=== PATIENT | female | born 1995 | race African-American/Black ===

== ENCOUNTER 2024-04-18 10:39 | Outpatient (CLI) | payer OTHER ==
[~2024-04-18] VITALS: Ht 160 cm; Wt 83.6 kg
[2024-04-18] MEDS ORDERED: Ondansetron 4 MG/2 ML VIAL IV ONE (11:00)
[2024-04-18] MEDS ORDERED: LR 1,000 ML IV ONE (11:00)
[2024-04-18 11:32] LABS: BASO # 0.1 K/mm3 (0.0-0.2); BASO % 0.4 % (0.0-2.0); EOS # 0.2 K/mm3 (0.0-0.7); GRAN # 12.4 K/mm3 (1.4-6.5); GRAN % 78.7 % (42.2-75.2); LYMPH # 1.7 K/mm3 (1.2-3.4); LYMPH % 10.7 % (20.0-51.0); MEAN CELL VOLUME 72 fl (80.0-100.0); MEAN CORPUSCULAR HGB CONC 34 g/dl (33.0-37.0); MEAN PLATELET VOLUME 11.3 fl (7.4-10.4); MONO # 1.2 K/mm3 (0.1-0.6); MONO % 7.4 % (1.7-9.3); PLATELET COUNT 249 K/mm3 (130-400); RED BLOOD COUNT 3.79 M/mm3 (4.10-5.30); REDCELL DISTRIBUTION WIDTH-CV 17.4 % (11.5-14.5)
[2024-04-18 11:34] LABS: HEMATOCRIT 27.2 % (37.0-47.0); HEMOGLOBIN 9.1 g/dl (12.5-16.0); MEAN CORPUSCULAR HEMOGLOBIN 24 pg (27-31)
[2024-04-18] MEDS ORDERED: PRENATAL (11:37)
[2024-04-18] MEDS ORDERED: LR 1,000 ML IV PRN (11:45)
[2024-04-18 12:00] VITALS: PULSE 84; TEMP 98.1
[2024-04-18 12:06] LABS: ALBUMIN 2.5 g/dL (3.5-5.0); BILIRUBIN,TOTAL 0.3 mg/dL (0.2-1.2); C-REACTIVE PROTEIN 0.72 mg/dL (0.00-0.50); CALCIUM 9.3 mg/dL (8.4-10.2); CREATININE, serum 0.77 mg/dL (0.57-1.11); TOTAL PROTEIN 6.2 g/dl (6.2-8.1)
[2024-04-18 12:30] VITALS: BP 103/57; PULSE 71
[2024-04-18 12:45] VITALS: BP 96/54; PULSE 77
[2024-04-18 12:45] LABS: URINE APPEARANCE CLEAR (CLEAR/HAZY); URINE BLOOD NEGATIVE (NEGATIVE); URINE COLOR YELLOW (YELLOW); URINE GLUCOSE NEGATIVE (NEGATIVE); URINE KETONE NEGATIVE (NEGATIVE); URINE NITRATE NEGATIVE (NEGATIVE); URINE PROTEIN(semi-quant) NEGATIVE (NEGATIVE)
[2024-04-18] MEDS ORDERED: Terbutaline 1 MG/ML 1 ML AMP SQ ONE (12:45)
[2024-04-18 12:51] LABS: COLLECTION METHOD CLEAN CATCH
[2024-04-18 13:15] VITALS: BP 121/58; PULSE 83
[2024-04-18 13:35] VITALS: PULSE 90
--- NOTE | 2024-04-18 13:40 | NUR ---
CATEGORY 1 EFM TRACING THROUGHOUT VISIT. NO CONTRACTIONS AT THIS TIME. PT FULLY ALERT AND ORIENTED, REPORTS FEELING HUNGRY. ABLE TO TOLERATE PO CRACKERS. LR BAG #2 INFUSED. MATERNAL VITAL SIGNS STABLE. SEE PHYSICIAN ORDERS AND NOTIFICATIONS. DC INSTRUCTIONS INCLUDING WHEN TO RETURN REVIEWED AND UNDERSTOOD. ALL APPROPRIATE PAPERWORK SIGNED. PT DC'D FROM UNIT AT THIS TIME.
== END 2024-04-18 13:40 | disposition home or self-care (01) ==
LOC: LDRO 10:39 → COL.ER 10:39 → LDRO 13:40 → EDSTATUS 13:47
PROVIDERS: Family Medicine
DX: Z34.83 Encounter for supervision of other normal pregnancy, third trimester (principal); Z3A.30 30 weeks gestation of pregnancy
CPT/HCPCS: J2405; J3105; J7120

== ENCOUNTER 2024-06-18 14:04 | Outpatient (CLI) | payer OTHER ==
[~2024-06-18] VITALS: Ht 160 cm; Wt 92.3 kg
[~2024-06-18 14:04] MED LIST: PRENATAL
--- NOTE | 2024-06-18 14:10 | NUR ---
PATIENT AMBULATORY TO UNIT, PATIENT ORIENTED TO LABOR ROOM 3 AND ASSISTED INTO A GOWN. PATIENT COMPLAINS OF POSSIBLE LEKAING OF FLUID AND SOME CONTRACTIONS, GOOD MOVEMENT, NO VAGINAL BLEEDING. EFM ADN TOCO PLACED AND TRACING. SVE BY KELY /-2, POSTERIOR, AMNITRACE NEGATIVE. ASSESSMENTS COMPLETED. PATIENT ENCOURAGED TO DRINK PLENTY OF FLUIDS AND UPDATED ON PLAN OF CARE
[2024-06-18 14:45] VITALS: BP 141/77; PULSE 100; TEMP 97.8
[2024-06-18] MEDS ORDERED: LR 1,000 ML IV PRN (14:45)
[2024-06-18 15:15] VITALS: BP 125/68; PULSE 88
[2024-06-18 15:40] VITALS: BP 136/78; PULSE 78
== END 2024-06-18 15:50 | disposition home or self-care (01) ==
LOC: LDRO 14:04
DX: O47.1 False labor at or after 37 completed weeks of gestation (principal); Z3A.39 39 weeks gestation of pregnancy
CPT/HCPCS: J7120

== ENCOUNTER 2024-06-21 14:25 | Inpatient (IN) | payer OTHER ==
[~2024-06-21] VITALS: Ht 160 cm; Wt 95.0 kg
[2024-06-21] VITALS (26 sets, daily range): BP systolic 103–151; BP diastolic 57–90; PULSE 68–93; TEMP 97.4–97.6
--- NOTE | 2024-06-21 14:30 | NUR ---
1430PT TO UNIT VIA WHEELCHAIR FOR LABOR CHECK. PT CHANGED INTO GOWN. PT IN BED. 1435THIS RN AT BEDSIDE TO PLACE TOCO AND EFM. EFM TRACING CAT I. PT VITAL SIGNS STABLE. PT STATES HER CTX ARE 3-4 MIN APART, LASTING 35-40 SECONDS. POSITIVE MOVMENT. PT DENIES LOF AND REPORTS VAGINAL BLEEDING AFTER HER CERVICAL CHECK THIS AFTERNOON. 1440SVE PER THIS RN. 2-3/60/-3. CERVIX POSTERIOR. PT TOLERATED WELL. 1520PT STATES CTX ARE GETTING STRONGER AND SHE IS SUPER UNCOMFORTABLE. 1540SVE PER THIS RN. CERVIX UNCHANGED 2-3/60/-3. PT REQUESTS TO STAY AND BE MONITORED. PT STATES SHE IS EXHAUSTED AND VERY UNCOMFORTABLE. PT STATES SHE IS WORRIED IF SHE LEAVES AND GOES INTO LABOR, SHE LIVES 30 MIN[address] AWAY. 1557DR IRENE NOTIFIED. ADMIT ORDER GIVEN.
[2024-06-21] MEDS ORDERED: LR 1,000 ML IV PRN (15:00)
[2024-06-21] MEDS ORDERED: LR 1,000 ML IV SCH (16:15)
--- NOTE | 2024-06-21 16:25 | NUR ---
THIS RN ALONG WITH BERONICA RN, AND DESTIN RN AT BEDSIDE TO ATTEMPT TO START IV. PT STATES SHE FEELS LIKE SHE NEED TO POOP. SVE PER DESTIN ALFORD. /-2.
--- NOTE | 2024-06-21 16:40 | NUR ---
1640IV STARTED PER BERONICA ALFORD. FIRST BAG OF IVF HUNG. LR BOLUS STARTED. 1642PT REQUESTS EPIDURAL. 1646TODD LEGAL SUPPORT ANALYST NOTIFIED OF PT REQUEST FOR EPIDURAL. 1705TODD LEGAL SUPPORT ANALYST ON UNIT. PT UP TO SITTING ON UNIT. PULSE OX PLACED. VITAL SIGNS STABLE. 1721TEST DOSE ADMINISTERED AT THIS TIME PER PEREZ COSTELLO. PT TOLERATED WELL. 1730PT RETURNED TO BED. PT POSITIONED WEDGE RIGHT. PT STATES SHE IS HAVING A LOT OF RECTAL PRESSURE. 1732DERECK RN AT BEDSIDE FOR SVE. /-2. PT REPOSITINOED TO WEDGE RIGHT WITH A PEANUT BALL. 1750PT STATES SHE IS HAVING TONS OF RECTAL PRESSURE. 1752SVE PER THIS RN. /-1. DENSON PLACED AT THIS TIME. PT TOLERATED WELL. EFM TRACING CAT I.
[2024-06-21 17:04] LABS: BASO % 0.3 % (0.0-2.0); EOS % 0.3 % (0.0-4.0); GRAN # 10.7 K/mm3 (1.4-6.5); GRAN % 79.3 % (42.2-75.2); LYMPH # 1.8 K/mm3 (1.2-3.4); LYMPH % 13.3 % (20.0-51.0); MEAN CELL VOLUME 68 fl (80.0-100.0); MEAN CORPUSCULAR HGB CONC 32 g/dl (33.0-37.0); MONO # 0.9 K/mm3 (0.1-0.6); MONO % 6.3 % (1.7-9.3); PLATELET COUNT 243 K/mm3 (130-400); RED BLOOD COUNT 4.18 M/mm3 (4.10-5.30); REDCELL DISTRIBUTION WIDTH-CV 23.3 % (11.5-14.5)
[2024-06-21] MEDS ORDERED: ROPivacaine PF 0.2% 200 ML IV ONE (17:07)
[2024-06-21 17:16] LABS: HEMATOCRIT 28.4 % (37.0-47.0); HEMOGLOBIN 9.2 g/dl (12.5-16.0); MEAN CORPUSCULAR HEMOGLOBIN 22 pg (27-31)
[2024-06-21] MEDS ORDERED: Ondansetron 4 MG/2 ML VIAL IV PRN (18:00)
[2024-06-21] MEDS ORDERED: diphenhydrAMINE 25 MG CAP PO PRN (18:00)
[2024-06-21] MEDS ORDERED: Naloxone 0.4 MG/ML VIAL IV PRN (18:00)
[2024-06-21] MEDS ORDERED: ePHEDrine 50 MG/10 ML VIAL IV PRN (18:00)
[2024-06-21] MEDS ORDERED: diphenhydrAMINE 50 MG/ML 1 ML VIAL IV PRN (18:00)
[2024-06-21] MEDS ORDERED: LR & Oxytocin 500 ML IV SCH (18:45)
--- NOTE | 2024-06-21 18:45 | NUR ---
1845-PT PLAED IN [facility]. BABY WITH VARIABLE DECEL WITH CTX TO 60-70. PT THEN PLACED IN RT TILT WITH IMPROVEMENT IN FHR.
--- NOTE | 2024-06-21 19:05 | NUR ---
PT NOTED TO HAVE FHR DECEL TO 50-60 WITH RETURN TO BL IN 90 SEC, SVE DURING DECEL. NO CHANGE FROM PREVIOUS CHECK. 191-PT NOW IN L LATERAL WITH RT LEG IN STIRRUP
--- NOTE | 2024-06-21 20:17 | NUR ---
2016-WHEN PT MOVED TO SUPINE FOR SVE, VARIABLE DECEL NOTED. PT MOVED INTO LEFT TILT WITH NO IMPROVEMENT. 2021-PITOCIN OFF. PT MOVED TO RT LATERAL POSITION. 2023 PT CONTINUES TO HAVE FREQUENT VARIABLE FHR DECELERATIONS TO 60-70 THAT INCREASE BRIEFLY BUT THEN GO BACK DOWN. LR BOLUSING. 2027-CALLED DR BONILLA. THE FHR CURRENTLY APPEARS TO BE RECOVERING AND STAYING AT BASELINE. REQUESTED HIM TO COME TO EVALUATE PT.
--- NOTE | 2024-06-21 20:50 | NUR ---
2048-PUSHING WITH CTX AFTER INSTRUCTION GIVEN. 2052-DENSON REMOVED
--- NOTE | 2024-06-21 21:05 | NUR ---
SOME CLUSTERING OF CTX
--- NOTE | 2024-06-21 21:16 | NUR ---
2115-VACUUM APPLIED TO HEAD PER DR. BONILLA. 2117-VACUUM PUMPED UP TO GREEN ZONE PT STARTED PUSHING. 2118-VACUUM ASSISTED VAGINAL DELIVERY OF VIABLE MALE. NO POP-OFFS OCCURRED.
[2024-06-22] MEDS ORDERED: Ibuprofen 600 MG TAB PO SCH (00:15)
[2024-06-22] MEDS ORDERED: Naloxone 0.4 MG/ML VIAL IV PRN (00:15)
[2024-06-22] MEDS ORDERED: Phenylephrine/Mineral Oil/Petrolatum 57 GM TUBE RC PRN (00:15)
[2024-06-22] MEDS ORDERED: Mag/Al Hydrox/Simeth Susp 30 ML CUP PO PRN (00:15)
[2024-06-22] MEDS ORDERED: Acetaminophen 500 MG TAB PO SCH (00:15)
[2024-06-22] MEDS ORDERED: Witch Hazel 50% Pads Bulk TUB TP PRN (00:15)
[2024-06-22] MEDS ORDERED: Measles/Mumps/Rubella Virus Vaccine Live w Diluent 0.5 ML VIAL SQ SCH (00:15)
--- NOTE | 2024-06-22 00:40 | NUR ---
PT UP TO BR. AMBULATED WITHOUT WEAKNESS OR DIZZINESS. PERICARE DONE WITH PERIBOTTLE AND INSTRUCTIONS GIVEN. ICE PACK AND TUCKS PADS TO PERINEUM. PT VOIDED WITHOUT DIFFICULTY. 0055-AMBULATED TO ROOM WITHOUT DIFFICULTY. ORIENTED PT TO ROOM. ENCOURAGED PT TO CALL FOR ASSIST IF NEEDED. CALL LIGHT IN REACH.
[2024-06-22 02:50] VITALS: BP 145/80; PULSE 69; TEMP 99.1
--- NOTE | 2024-06-22 07:28 | NUR ---
THIS RN ENTERS ROOM TO PERFORM ASSESSMENTS.UPON ENTERING THE ROOM WAS FOUND SWADDLED IN BED AND MOTHER IN THE BATHROOM.MOTHER ADVISED TO PLACE INFANT IN CRIB WHEN LEAVING THE ROOM.MOTHER VERBALIZED UNDERSTANDING.THIS RN PLACED INFANT IN THE CRIB AT THIS TIME.
[2024-06-22 08:00] VITALS: BP 136/71; PULSE 88
[2024-06-22] MEDS ORDERED: Sennosides/Docusate 8.6-50 MG TAB PO SCH (08:00)
[2024-06-22] MEDS ORDERED: IBU600 MG PO (08:23)
[2024-06-22] MEDS ORDERED: PERCOCET 325 MG1 TA2 PO (08:24)
[2024-06-22 08:54] LABS: HEMATOCRIT 22.6 % (37.0-47.0); HEMOGLOBIN 7.4 g/dl (12.5-16.0)
[2024-06-22] MEDS ORDERED: Loratadine 10 MG TAB PO PRN (09:00)
[2024-06-22] MEDS ORDERED: Prenatal Vitamins/Iron/FA TAB PO SCH (09:00)
--- NOTE | 2024-06-22 09:14 | NUR ---
Initial visit; Patient thanked Unemployment Claims Adjudicator for looking in on her and her son and for offering congratulations and God's blessings for his . Unemployment Claims Adjudicator thanked Anupama for choosing [facility].
[2024-06-22 16:00] VITALS: BP 126/71; PULSE 80; TEMP 98.6
--- NOTE | 2024-06-22 17:11 | NUR ---
THIS RN ENTERS THE ROOM,UPON ENTERING,THE WAS FOUND SLIGHTLY COVERED BY A BLANKET AND IN BED WHILE MOTHER IS IN THE BATHROOM. THIS RN PLACES THE INFANT IN THE CRIB.THIS RN EDUCATES MOTHER ON SAFE SLEEPING HABITS WITH THE INFANT.MOTHER STATES, "I DIDNT WANT TO WAKE HIM UP WHEN I WENT TO THE BATHROOM".
[2024-06-22 19:35] VITALS: BP 123/78; PULSE 73; TEMP 98.3
[2024-06-22] MEDS ORDERED: traZODone 50 MG TAB PO PRN (21:00)
[2024-06-22] MEDS ORDERED: Magnes Hydrox (MOM) 80 MG/ML 30 ML CUP PO PRN (21:00)
[2024-06-23 07:45] VITALS: BP 113/61; PULSE 74; TEMP 98.6
== END 2024-06-23 10:55 | disposition home or self-care (01) | DRG 807 ==
LOC: LDRO 14:25 → LDR 14:30 → LDRO 15:50 → OB 15:51 → LDR 15:51 → OB 06-22 00:17
PROVIDERS: ADMIT Obstetrics & Gynecology
PROC: 10D07Z6 Extraction of Products of Conception, Vacuum, Via Natural or Artificial Opening (ICD-10-PCS; principal; 2024-06-21)
PROC: 0UQMXZZ Repair Vulva, External Approach (ICD-10-PCS; 2024-06-21)
DX: O99.02 Anemia complicating childbirth (principal); Z37.0 Single live birth; Z3A.39 39 weeks gestation of pregnancy; D58.2 Other hemoglobinopathies; O70.0 First degree perineal laceration during delivery
CPT/HCPCS: J2590; J2795; J7120